=== PATIENT | female | born 1995 | race Caucasian/White ===

== ENCOUNTER 2021-01-25 04:10 | Inpatient (IN) | payer SELFPAY, OTHER ==
[2021-01-25] VITALS (75 sets, daily range): BP systolic 77–241; BP diastolic 50–121; PULSE 61–184; RESP 16–18; TEMP 36.4–37.6; O2SAT 82–100; BMI 36.5
[2021-01-25] MEDS: Lactated Ringers 500 ML 999 ML IV ×2 (04:25→06:26)
[2021-01-25 04:40] LABS: Absolute Lymphocyte Count 1.34 X10^3/uL (0.83-4.51); Absolute Neutrophil Count 11.4 X10^3/uL (2.0-7.7); Basophil# 0.04 X10^3/uL; Basophil% 0.3 % (0-1); Eosinophil# 0.04 X10^3/uL; Eosinophils% 0.3 % (0-5); Hematocrit 39.4 % (37-47); Hemoglobin 12.8 g/dL (12.0-15.0); Lymphocyte # 1.34 X10^3/ul (0.83-4.51); Lymphocyte % 9.7 % (19-41); Mean Corp Hgb Conc 32.5 g/dL (32-36); Mean Corpuscular Hgb 31.5 pg (27.0-32.0); Monocyte# 0.83 X10^3/uL; NRBC Flagged by Analyzer 0 % (0-5); Neutrophil # 11.44 X10^3/uL (2.7-7.7); Neutrophil % 82.4 % (47-70); Platelet Count 186 K/mm3 (150-450); RBC Distribution Width SD 50.4 fl (35.1-43.9); Red Blood Count 4.06 M/mm3 (4.2-5.4); White Blood Count 13.9 K/mm3 (4.4-11.0)
[2021-01-25] MEDS: Lactated Ringers 1,000 ML 200 ML IV (04:56)
--- NOTE | 2021-01-25 05:14 | HP.PCM.OB_ITS ---
HPI - General General Date of Admission: 01/25/21 HPI Narrative ALIDA MARTINEZ, is a 25 F who presents with ctxs. Desires TOLAC. She reports prior successful after [address] [facility] as desires epidural. Maternal Data Information Final SKY: 01/17/21 Gestational age: 41&1 [facility]SH [facility] Medical History (Updated 01/25/21 @ 05:[address] Maranda Luna MD) Depression depression Home Medications NK 01/25/21 [History Last Taken Unknown] Allergy/AdvReac Type Severity Reaction Status Date / Time No Known Allergies Allergy Verified 01/25/21 03:56 Surgical History (Updated 01/25/21 @ 05:[address] Maranda Luna MD) Previous section Previous section Social History Smoking Status: Never smoker History Elective abortions Hx Para 2 Spontaneous abortions Hx # Term Pregnancies Ectopic pregnancies Hx # Pregnancies Multiple births # of living children Addt'l History: Patient received [facility] care [facility] She has h/o 1 that was LTCS per [place] discharge papers (reason was arrest of dilation) records reviewed Had low lying placenta that resolved per US on 11/23/[address] with normal 3hr (1 elevated value) Rubella non-immune NST FHR Rate Baby A Baseline: 135 Variability:: Moderate Accelerations:: 15 x 15 Decelerations:: None Uterine Activity:: Q2 minutes Vital Signs Vital Signs Vital Signs: 01/25/21 04:03 01/25/21 05:13 Temperature 98.0 F Temperature Source Temporal Pulse Rate 105 H 100 Blood Pressure 130/77 H BP Systolic 130 BP Diastolic 77 Pulse Ox 97 99 Weight Weight: 187 lb Body Mass Index (BMI) 36.5 Physical Exam Const alert, oriented x3 and no apparent distress Chest inspection of chest normal Resp normal respiratory effort GI soft to palpation, non-tender and non-distended Inspection: gravid external exam normal Narrative: Cvx - /- Labs Labs Labs: Blood Type AB POSITIVE Antibody Screen NEGATIVE Hct 39.4 % (37-47) Hgb 12.8 g/dL (12.0-15.0) Group B Strep DNA Pending Assessment & Plan (1) Post-dates : QUALIFIERS: Post-term type: 40-42 weeks gestation Qualified Code(s): O48.0 - Post-term (2) Previous section: COMMENT: @ 41&1 in labor PLAN: Desires TOLAC - informed consent signed - reviewed R/B/A Pain - epidural COVID negative EFW - less than 4500g, patient with adequate pelvis AROM clear amniotic fluid Expectant management GBS pending Routine care
[2021-01-25] MEDS: fentaNYL-bupivacaine (epidural) 100 ML BAG EPIDURAL (05:37)
[2021-01-25 06:53] LABS: Group B Strep DNA By PCR Negative (Negative); Internal Control PASS; Probe Check PASS; Specimen Processing Control PASS
--- NOTE | 2021-01-25 08:04 | EX.PCM.OBRPT ---
Maternal Data Information Final SKY: 01/17/21 Gestational age: 41&1 Vaginal Delivery Maternal Presentation Maternal Presentation: Active Labor Operative Information Date of Procedure: 01/25/21 Pre-Operative Diagnosis: Trial of labor after section Post-Operative Diagnosis: Same Surgery / Procedure Performed: Spontaneous Vaginal Delivery Type of Anesthesia: Epidural Drain: Quintana to straight drain Post Vaginal Delivery Medications Given After Delivery: IV Pitocin Complication Complications: None
[2021-01-25] MEDS: Oxytocin 30 units/NS 500 ml 30 UNITS/500 ML IV.SOLN 334 UNITS IV (09:09)
--- NOTE | 2021-01-25 09:18 | EX.PCM.OBRPT ---
Maternal Data Information Final SKY: 01/17/21 Gestational age: 41 1/7 weeks Vaginal Delivery Maternal Presentation Maternal Presentation: Active Labor Operative Information Date of Procedure: 01/25/21 Pre-Operative Diagnosis: labor, previous c/s Post-Operative Diagnosis: same Surgery / Procedure Performed: Type of Anesthesia: Epidural Special Medications: none Drain: Quintana to straight drain Estimated Blood Loss: 200 Time of Delivery: 09:06 Findings Description of Procedure: A vigorous [female] was delivered [YUNI] over an intact perineum. The remainder the was delivered with maternal pushing and gentle traction only in less than 15 seconds. The Pitocin infusion was initiated for active management of the third stage. The cord was clamped and cut after 2 minutes. The was attended to by the waiting nursing staff. The placenta was delivered spontaneously and intact. The cervix and vagina were intact. The small first-degree vaginal laceration was repaired with 3-0 Vicryl Rapide suture and was hemostatic. Sponge and needle counts were correct. A vaginal sweep was completed by me. Presentation: YUNI Amniotic Membrane Rupture Type: Artificial Amniotic Fluid Description: Clear Placental Delivery Description: Spontaneous Placenta Disposition: [facility] Cord Vessel Description: 3 Vessels Cord Entanglement: None Infant A Gender: Female (1 minute): 8 (5 minute): 9 Delayed Cord Clamping: Yes Post Vaginal Delivery Medications Given After Delivery: IV Pitocin Episiotomy Description: None Laceration: 1st degree (vaginal) Complication Complications: None Admit VTE Documentation VTE Present on Admission: No VTE Mechan Device Prophylaxis: SCD's VTE Pharm Prophylaxis Ordered: No Reason Prophylaxis Not Ordered: Procedure Not Indicated
[2021-01-25 10:03] LABS: HIV - WCH Non-Reactive (Nonreactive)
[2021-01-25 10:19] LABS: Hepatitis C Antibody Non-Reactive (Nonreactive)
[2021-01-25] MEDS: Ibuprofen 600 MG Tablet PO ×2 (11:03→16:40)
--- NOTE | 2021-01-25 11:16 | NURSING ---
Report given to Jc Roldan RN who will now assume care of this patient at this time.
[2021-01-25] MEDS: Acetaminophen 500 MG Tablet 1000 MG PO (20:00)
[2021-01-26 04:57] VITALS: BP 100/54; PULSE 76; RESP 18; TEMP 36.7
[2021-01-26 08:19] VITALS: BP 123/58; PULSE 76
--- NOTE | 2021-01-26 08:19 | PCM.PN.OB ---
Subjective Subjective Pt doing well. Pain controlled. Ambulating and voiding and rommel reg diet without difficulty. Lochia normal. Desires to go home. Objective Data Objective Data Vital Signs: Vital Signs Temp Pulse Resp BP Pulse Ox 98.1 F 76 18 100/54 L 82 01/26/21 04:57 01/26/21 04:57 01/26/21 04:57 01/26/21 04:57 01/25/21 15:15 Oxygen Delivery Method Room Air Weight: 187 lb Body Mass Index (BMI) 36.5 Intake & Output: Intake and Output for Last 24 Hours 01/24/21 01/25/21 01/26/21 23:59 23:59 23:59 Intake Total 2120 / 2120 Output Total 950 / 950 Balance 1170 / 1170 Lab / Micro Data Result Diagrams: 01/25/21 04:25 Labs: Laboratory Results - last 24 hr 01/25/21 07:45: HIV 1&2 Antibody Non-Reactive 01/25/21 07:45: Hepatitis C Antibody Non-Reactive Micro: Microbiology 01/25/21 04:37 Mucosa - Nose SARS-CoV-2 Antigen (Rapid) - Final Physical Exam Const alert and no apparent distress General Appearance: comfortable HEENT normocephalic GI soft to palpation, non-tender and non-distended Extremity no calf tenderness Assessment & Plan (1) state: PLAN: Doing well. Desires discharge home today.
--- NOTE | 2021-01-26 08:22 | PCM.DC ---
Discharge Instructions Diet Discharge Diet: No restrictions Activity Discharge Activity: May Drive and May Shower May resume sexual activity in: 6 weeks Weight Bearing Status: Weight bearing as tolerated Dressing / Incision Call your doctor if you observe: Fever of 101 or Higher, Inability to urinate, Using more than 1 pad per hour, Shortness of breath, Dizziness, Fainting spells, Swelling in the ankles, Chest pain, Increased palpitations (irregular heartbeat), Calf discomfort and Uncontrolled pain Follow Up Care When: 6 week visit Test Results: Test results from this visit will be discussed in further detail at your follow-up appointment, if applicable. Discharge Plan Admission Admit Date/Time: 01/25/21 04:10 Attending Provider: Kinsey Galeana Primary Care Provider: Ochoa Louis Instructions Patient Instructions: After Delivery Concerns, : Caring for Yourself Discharge Orders/Prescriptions Prescriptions: Continued NK RF: 0 Referrals / Follow Up: Ochoa Louis MD [Primary Care Provider] -
[2021-01-26 08:38] VITALS: BP 123/88; PULSE 76; RESP 16; TEMP 36.2; O2SAT 98
[2021-01-26 12:40] VITALS: BP 108/56; PULSE 75; RESP 16; TEMP 36.6
[2021-01-26 12:42] VITALS: BP 108/56; PULSE 75
[2021-01-26] MEDS: Ibuprofen 600 MG Tablet PO (12:49)
== END 2021-01-26 14:05 | disposition home or self-care (01) | DRG 807 ==
LOC: WPOUT 04:15 → WP 04:15
PROVIDERS: Obstetrics & Gynecology; Admitting Provider Obstetrics & Gynecology; PCP Family Medicine; Visit Provider Obstetrics & Gynecology
DX: O34.211 Maternal care for low transverse scar from previous cesarean delivery (principal); O48.0 Post-term pregnancy; O99.214 Obesity complicating childbirth; E66.9 Obesity, unspecified; O70.0 First degree perineal laceration during delivery; Z37.0 Single live birth; Z3A.41 41 weeks gestation of pregnancy
CPT/HCPCS: 59025; 59050; 85025; 86703; 86803; 86850; 86900; 86901; 87081; 87426; 87653; 99218; J7120; G0378